=== PATIENT | male | born 2000 | race Hispanic/Latino ===

== ENCOUNTER 2022-08-08 11:27 | Emergency (ER) | payer SELFPAY ==
[2022-08-08 12:42] LABS: Anion Gap 17 mmol/L (10-20); BUN (Urea Nitrogen) 8 mg/dL (8.9-20.6); Calc. Creatinine Clearance 0 mL/min (70-130); Carbon Dioxide 25 mmol/L (22-29); Chloride 104 mmol/L (98-107); Estimated GFR 121; Glucose 85 mg/dL (70-105); Potassium 4.1 mmol/L (3.5-5.1); Sodium 142 mmol/L (136-145)
[2022-08-08 13:36] LABS: #Basophils 0.1 thou/uL (0.0-0.2); #Lymphocytes 1.7 thou/uL (1.20-3.40); #Monocytes 1.8 thou/uL (0.11-0.59); #Neutrophils 8.4 thou/uL (1.40-6.50); %Basophils 0.7 % (0.0-1.0); %Eosinophils 7.4 % (0.0-10.0); %Lymphocytes 13.2 % (21.0-51.0); %Monocytes 13.9 % (0.0-10.0); %Neutrophils 64.8 % (42.0-75.0); Hemoglobin 17.6 g/dL (14.0-18.0); Mean Corpuscular HGB CONC 33.6 g/dL (32.0-36.0); Mean Corpuscular Hemoglobin 30.8 pg (27.0-31.0); Mean Corpuscular Volume 91.8 fl (78.0-98.0); Mean Platelet Volume 9.4 fL (7.4-10.4); Platelet Count 202 10x3/uL (130-400); RBC Distribution Width 11.6 % (11.5-14.5); Red Blood Cell (RBC) Count 5.69 mill/uL (4.70-6.10); White Blood Cell (WBC) Count 12.9 10x3/uL (4.8-10.8)
[2022-08-08] MEDS ORDERED: Ipratropium/Albuterol 3 ML NEB ONE ×2 (13:56→15:11)
== END 2022-08-08 15:35 | disposition home or self-care (01) ==
LOC: ERS 11:27
DX: J45.901 Unspecified asthma with (acute) exacerbation (principal); D72.829 Elevated white blood cell count, unspecified
CPT/HCPCS: 36415; 71045; 80048; 83605; 84484; 85025; J7620